=== PATIENT | female | born 1990 | race Two or more races ===

== ENCOUNTER 2016-12-30 09:38 | Emergency (ER) | payer OTHER ==
[~2016-12-30] VITALS: Ht 167.6 cm; Wt 77.0 kg
[~2016-12-30 09:38] MED LIST: ALLEGRA30 MG; COLACE100 MG PO; IBUPROFEN800 MG PO; IRON325 MG PO; LORTAB 5-325 M1 EACH PO; MACROBID100 MG PO; Motrin PO; NAPROSYN375 MG PO; PRENATAL TABLE1 EAC3 PO; SPRINTEC1 EACH PO; Tylenol Extra Streng PO; ZOFRAN ODT4 MG PO; [UNRECOGNIZED DRUG - OTHER] PO
[2016-12-30] MEDS ORDERED: TOPAMAX25 MG PO (10:01)
[2016-12-30] MEDS ORDERED: CEFTIN250 MG PO (10:01)
[2016-12-30] MEDS ORDERED: PERCOCET 5/31 TABLET PO (10:18)
[2016-12-30 10:29] VITALS: BP 107/70
== END 2016-12-30 10:40 | disposition home or self-care (01) ==
LOC: EME 09:38
DX: S73.102A Unspecified sprain of left hip, initial encounter (principal); S43.402A Unspecified sprain of left shoulder joint, initial encounter; V43.52XA Car driver injured in collision with other type car in traffic accident, initial encounter
CPT/HCPCS: 99281; 99284

== ENCOUNTER 2017-01-03 09:27 | Emergency (ER) | payer OTHER ==
[~2017-01-03] VITALS: Ht 167.6 cm; Wt 76.5 kg
[~2017-01-03 09:27] MED LIST changes: +CEFTIN250 MG PO; +PERCOCET 5/31 TABLET PO; +TOPAMAX25 MG PO
[2017-01-03] MEDS ORDERED: MOTRIN800 MG PO (14:32)
[2017-01-03] MEDS ORDERED: LIDOCAINE700 MG TD (14:32)
[2017-01-03] MEDS ORDERED: FLEXERIL10 MG PO (14:32)
[2017-01-03 14:52] VITALS: BP 124/74
== END 2017-01-03 14:53 | disposition home or self-care (01) ==
LOC: EME 09:27
DX: M62.830 Muscle spasm of back (principal); R51 Headache; M54.2 Cervicalgia; V49.9XXD Car occupant (driver) (passenger) injured in unspecified traffic accident, subsequent encounter; R11.0 Nausea
CPT/HCPCS: 70450; 72100; 72125; 84703; 99281; 99284; J2270

== ENCOUNTER 2017-12-30 13:59 | Emergency (ER) | payer OTHER ==
[~2017-12-30] VITALS: Ht 170.2 cm; Wt 88.1 kg
[~2017-12-30 13:59] MED LIST changes: +FLEXERIL10 MG PO; +LIDOCAINE700 MG TD; +MOTRIN800 MG PO
[2017-12-30 15:01] LABS: HEMATOCRIT 33.3 % (36.0-46.0); HEMOGLOBIN 10.4 G/DL (11.9-15.5); MCH 23.1 PG (29.0-34.0); MCHC 31.2 G/DL (30.0-36.0); MCV 73.8 FL (83-99); PLATELET COUNT 244 K/uL (156-360); RBC DIS.WIDTH-CV 17.2 % (11.8-14.6); RBC DIS.WIDTH-SD 45.7 % (39-53); RED BLOOD COUNT 4.51 M/uL (3.80-5.20); WHITE BLOOD COUNT 4.3 K/uL (4.1-10.2)
[2017-12-30 15:05] LABS: CHLORIDE 104 mEq/L (99-109); POTASSIUM 3.4 mEq/L (3.7-5.4); SODIUM 140 mEq/L (136-147)
[2017-12-30 15:07] LABS: GLUCOSE 96 mg/dL (70-99)
[2017-12-30 15:10] LABS: CREATININE 0.7 mg/dL (0.6-1.3); GFR ESTIMATE (CALCULATED) > 59 mL/min/
[2017-12-30 15:11] LABS: UREA NITROGEN (BUN) 9 mg/dL (9-23)
[2017-12-30 15:18] LABS: QUANTITATIVE HCG < 4.0 MIU/ML
[2017-12-30 17:18] LABS: APPEARANCE SL.HAZY ((CLEAR)); BILIRUBIN NEGATIVE; BLOOD NEGATIVE; COLOR YELLOW ((YELLOW)); GLUCOSE (STRIP) NEGATIVE; KETONES NEGATIVE; LEUKOCYTES MODERATE; NITRITE NEGATIVE; PROTEIN (STRIP) NEGATIVE; SPECIFIC GRAVITY 1.014 (1.000-1.030); UROBILINOGEN 0.2 MG/DL (0.2-1.0)
[2017-12-30 17:24] LABS: BACTERIA RARE /HPF; EPITHELIAL CELLS 3+ /HPF; MUCUS 1+ /LPF; RED BLOOD CELLS 0-5 /HPF (0-5); WHITE BLOOD CELLS 0-5 /HPF (0-5)
[2017-12-30 19:33] LABS: ALBUMIN 4.2 g/dL (3.2-4.8)
[2017-12-30 19:36] LABS: TOTAL PROTEIN 7.4 g/dL (6.4-8.3)
[2017-12-30 19:38] LABS: TOTAL BILIRUBIN 0.2 mg/dL (0.0-1.0)
[2017-12-30 19:39] LABS: ALKALINE PHOSPHATASE 74 IU/L (3-129)
[2017-12-30 19:41] LABS: AST (GOT) 24 IU/L (2-34); DIRECT BILIRUBIN 0.1 mg/dL (0.0-0.3)
[2017-12-30 19:42] LABS: ALT (GPT) 22 IU/L (3-49); LIPASE 22 U/L (1.0-51.0)
[2017-12-30] MEDS ORDERED: TAMIFLU75 MG PO (21:18)
[2017-12-30] MEDS ORDERED: FIORICET 50-301 EAC1 PO (21:18)
[2017-12-30 21:39] VITALS: BP 139/77
== END 2017-12-30 21:41 | disposition home or self-care (01) ==
LOC: EME 13:59
PROVIDERS: Emergency Medicine
DX: J10.1 Influenza due to other identified influenza virus with other respiratory manifestations (principal); G43.909 Migraine, unspecified, not intractable, without status migrainosus; M54.5 Low back pain
CPT/HCPCS: 71260; 74177; 76770; 80048; 80076; 81003; 83690; 84702; 85027; 87502; 99281; 99285; J1200; J1885; J2270; J2765; J7030

== ENCOUNTER 2018-07-04 17:23 | Emergency (ER) | payer OTHER ==
[~2018-07-04] VITALS: Ht 170.2 cm; Wt 84.9 kg
[~2018-07-04 17:23] MED LIST changes: +FIORICET 50-301 EAC1 PO; +TAMIFLU75 MG PO
[2018-07-04 20:56] VITALS: BP 119/77
== END 2018-07-04 20:56 | disposition home or self-care (01) ==
LOC: EME 17:23
DX: H57.11 Ocular pain, right eye (principal); G43.909 Migraine, unspecified, not intractable, without status migrainosus; Z91.018 Allergy to other foods
CPT/HCPCS: 99281; 99284